=== PATIENT | male | born 1985 | race American Indian/Alaskan Native ===

== ENCOUNTER 2021-12-01 09:27 | Outpatient (CLI) | payer OTHER ==
--- NOTE | 2021-12-01 10:25 | XRay Report ---
CHEST 2 VIEWS INDICATION / CLINICAL INFORMATION: RULE OUT ACTIVE TB. COMPARISON: None available. FINDINGS: SUPPORT DEVICES: None. HEART / MEDIASTINUM: No significant abnormality. LUNGS / PLEURA: No significant pulmonary or pleural abnormality. No pneumothorax. ADDITIONAL FINDINGS: No significant additional findings. IMPRESSION: 1. No acute findings. Signer Name: Moises Pierce MD Signed: 12/01/2021 10:17 AM Workstation Name: [id number]
== END 2021-12-01 09:28 | disposition home or self-care (01) ==
LOC: XRAY 09:27
PROVIDERS: ATTEND Psychiatry & Neurology Psychiatry
DX: A15.9 Respiratory tuberculosis unspecified (principal)
CPT/HCPCS: 71046